=== PATIENT | female | born 1960 | race Caucasian/White ===

== ENCOUNTER 2021-05-13 08:18 | Inpatient (IN) | payer BC ==
[~2021-05-13] VITALS: Ht 165.1 cm; Wt 70.8 kg
[2021-05-13] MEDS ORDERED: ATOR80TA59 PO (08:41)
[2021-05-13] MEDS ORDERED: FLUO20CA22 PO (08:41)
[2021-05-13] MEDS ORDERED: VANCOMYCIN HCL 1,500 MG in NS 250 ML IV ONE (09:55)
[2021-05-13 09:58] LABS: BASO % 0.5 % (0.0-1.0); EOS # 0.1 10^3/uL (0.0-0.5); HEMATOCRIT 46.1 % (36.0-47.0); HEMOGLOBIN 15.8 g/dl (12.0-15.5); LYMPH # 1.2 10^3/uL (1.5-5.0); MEAN CORPUSCULAR HGB CONC 34.3 g/dl (32.0-36.5); MEAN CORPUSCULAR VOLUME 93.5 fl (80.0-96.0); MONO # 0.4 10^3/uL (0.0-0.8); MONO % 6.5 % (2.0-8.0); NEUTROPHILS # 4.2 10^3/uL (1.5-8.5); PLATELET COUNT, AUTOMATED 206 10^3/uL (150-450); RED BLOOD COUNT 4.93 10^6/uL (4.00-5.40)
[2021-05-13] MEDS ORDERED: VANCOMYCIN HCL 750 MG, VIAL MATE ADAPTER 1 EACH in NS 250 ML IV ONE ×2 (10:00→11:00)
[2021-05-13] MEDS ORDERED: ATOR40TA75 PO (10:11)
[2021-05-13] MEDS ORDERED: HOME MED LIST COMPLETE! XX SCH (10:15)
[2021-05-13 10:19] LABS: C REACTIVE PROTEIN QUANTITATIV < 0.30 MG/DL (0.00-0.30); RHEUMATOID FACTOR QUANT < 10.0 IU/ML (<15.0)
[2021-05-13] MEDS ORDERED: KETOROLAC 30 MG/ML 1ML VIAL IV ONE (10:25)
[2021-05-13] MEDS ORDERED: ACETAMINOPHEN 500 MG TAB PO ONE (10:25)
[2021-05-13 10:28] LABS: ERYTHROCYTE SEDIMENTATION RATE 2 mm/hr (0-30)
[2021-05-13 11:13] LABS: RSV AMPLIFICATION NEGATIVE (NEGATIVE)
[2021-05-13 11:30] VITALS: O2SAT 97
[2021-05-13] MEDS ORDERED: traMADol 50 MG TAB PO PRN (12:20)
[2021-05-13] MEDS ORDERED: MORPHINE 4 MG/ML 1ML VIAL/SYRINGE (J2270) IV PRN (12:30)
[2021-05-13] MEDS ORDERED: NALOXONE INJ 0.4MG/1ML VIAL (J2310 PER 1MG) IV PRN (12:30)
[2021-05-13] MEDS ORDERED: amLODIPine 5 MG TAB PO PRN (12:30)
[2021-05-13 13:17] LABS: INR 0.97; PROTHROMBIN TIME 13.3 SECONDS (12.7-14.5)
[2021-05-13 13:18] LABS: PARTIAL THROMBOPLASTIN TIME 43.7 SECONDS (25.9-37.0)
[2021-05-13 13:21] LABS: D-DIMER QUANT 560.54 ng/ml (<500)
[2021-05-13 13:35] LABS: ALBUMIN 3.9 GM/DL (3.2-5.2); ALT/SGPT 73 U/L (12-78); BILIRUBIN,DIRECT 0.2 MG/DL (0.0-0.2); BILIRUBIN,TOTAL 0.7 MG/DL (0.2-1.0); C REACTIVE PROTEIN QUANTITATIV < 0.30 MG/DL (0.00-0.30); FERRITIN 274 NG/ML (8-252); LDH LACTATE DEHYDROGENASE 197 U/L (84-246); TOTAL PROTEIN 6.8 GM/DL (6.4-8.2)
[2021-05-13] MEDS ORDERED: ENOXAPARIN 40MG/0.4ML SYRINGE (J1650 PER 10MG) SC ONE (14:00)
[2021-05-13 15:26] VITALS: BP 148/71
[2021-05-13] MEDS: FLUoxetine 20 MG CAP PO SCH (15:31)
[2021-05-13] MEDS: ACETAMINOPHEN 500 MG TAB PO SCH ×3 (15:32→20:19)
[2021-05-13] MEDS: KETOROLAC 30 MG/ML 1ML VIAL IV SCH ×2 (17:48→22:42)
[2021-05-13] MEDS: MUPIROCIN 2% OINT 22 GM TUBE TOP SCH ×2 (17:49→20:19)
[2021-05-13] MEDS: NS 1,000 ML IV SCH (17:49)
[2021-05-13] MEDS ORDERED: predniSONE 50 MG TAB PO ONE (18:00)
[2021-05-13] MEDS ORDERED: hydrOXYzine 50 MG TAB PO ONE (18:00)
[2021-05-13] MEDS: VANCOMYCIN HCL 1,000 MG, VIAL MATE ADAPTER 1 EACH in NS 250 ML IV SCH (20:12)
[2021-05-13] MEDS: hydrOXYzine 25 MG TAB PO SCH (20:18)
[2021-05-13] MEDS: diphenhydrAMINE CREAM 30GM TOP SCH (20:20)
[2021-05-13] MEDS: VANICREAM MOISTURIZING SKIN CREAM 113GM TUBE TOP SCH (20:20)
[2021-05-13] MEDS ORDERED: ATORVASTATIN 20 MG TAB PO SCH (21:00)
[2021-05-13 22:00] VITALS: BP 130/61
[2021-05-14] MEDS: VANCOMYCIN HCL 1,000 MG, VIAL MATE ADAPTER 1 EACH in NS 250 ML IV SCH ×2 (03:21→12:40)
[2021-05-14] MEDS: NS 1,000 ML IV SCH (03:22)
[2021-05-14] MEDS: MUPIROCIN 2% OINT 22 GM TUBE TOP SCH ×2 (05:07→09:00)
[2021-05-14] MEDS: KETOROLAC 30 MG/ML 1ML VIAL IV SCH ×2 (05:07→12:29)
[2021-05-14 05:09] VITALS: BP 120/62
[2021-05-14] MEDS ORDERED: BACITAB PO (07:30)
[2021-05-14] MEDS ORDERED: HYDR-3363 PO (07:30)
[2021-05-14] MEDS ORDERED: MUPI2OI TOP (07:30)
[2021-05-14] MEDS ORDERED: LEVO500T4 PO (07:30)
[2021-05-14 08:21] LABS: BASO % 0.1 % (0.0-1.0); HEMATOCRIT 40.5 % (36.0-47.0); HEMOGLOBIN 13.7 g/dl (12.0-15.5); LYMPH # 0.8 10^3/uL (1.5-5.0); MEAN CORPUSCULAR HEMOGLOBIN 31.8 pg (27.0-33.0); MEAN CORPUSCULAR HGB CONC 33.8 g/dl (32.0-36.5); MONO # 0.3 10^3/uL (0.0-0.8); MONO % 2.6 % (2.0-8.0); NEUTROPHILS # 11.4 10^3/uL (1.5-8.5); NEUTROPHILS % 90.8 % (36.0-66.0); PLATELET COUNT, AUTOMATED 199 10^3/uL (150-450); RED BLOOD COUNT 4.31 10^6/uL (4.00-5.40); WHITE BLOOD COUNT 12.6 10^3/uL (4.0-10.0)
[2021-05-14 08:49] LABS: BLOOD UREA NITROGEN 22 MG/DL (7-18); CALCIUM LEVEL 8.1 MG/DL (8.8-10.2); CARBON DIOXIDE LEVEL 24 MEQ/L (21-32); CHLORIDE LEVEL 111 MEQ/L (98-107); CREATININE FOR GFR 0.65 MG/DL (0.55-1.30); GLOMERULAR FILTRATION RATE > 60.0 (>45); GLUCOSE, FASTING 109 MG/DL (70-100); SODIUM LEVEL 141 MEQ/L (136-145)
[2021-05-14 08:50] LABS: ERYTHROCYTE SEDIMENTATION RATE 3 mm/hr (0-30)
[2021-05-14] MEDS: diphenhydrAMINE CREAM 30GM TOP SCH (09:00)
[2021-05-14] MEDS ORDERED: predniSONE 10 MG TAB PO SCH (09:00)
[2021-05-14] MEDS ORDERED: ENOXAPARIN 40MG/0.4ML SYRINGE (J1650 PER 10MG) SC SCH (09:00)
[2021-05-14] MEDS: FLUoxetine 20 MG CAP PO SCH (09:00)
[2021-05-14] MEDS: hydrOXYzine 25 MG TAB PO SCH ×2 (09:35→15:51)
[2021-05-14] MEDS: ACETAMINOPHEN 500 MG TAB PO SCH ×2 (09:35→15:51)
[2021-05-14] MEDS: VANICREAM MOISTURIZING SKIN CREAM 113GM TUBE TOP SCH (09:38)
[2021-05-14] MEDS ORDERED: DIPHCR TOP (11:52)
[2021-05-14] MEDS ORDERED: DOXY-350 PO (11:52)
[2021-05-14 13:30] LABS: HEMOGLOBIN A1c 5.7 %
[2021-05-17 12:10] LABS: ANA (HEP2) Positive (.); ANTI DS-DNA AB Negative (Negative); SSA SJOGRENS A 0.2 AI (0.0-0.9); SSB SJOGRENS B <0.2 AI (0.0-0.9)
== END 2021-05-14 16:00 | disposition home or self-care (01) | DRG 383 ==
LOC: M ED 08:18 → M ED INP 12:07 → ENRESERV 13:11 → M 4MAIN 15:15
PROVIDERS: ADMIT General Practice; ATTEND General Practice
DX: L03.115 Cellulitis of right lower limb (principal); L03.116 Cellulitis of left lower limb; F41.9 Anxiety disorder, unspecified; F32.9 Major depressive disorder, single episode, unspecified; E78.00 Pure hypercholesterolemia, unspecified; G43.909 Migraine, unspecified, not intractable, without status migrainosus; E55.9 Vitamin D deficiency, unspecified; U07.1 COVID-19; Z88.1 Allergy status to other antibiotic agents; Z88.2 Allergy status to sulfonamides; Z88.8 Allergy status to other drugs, medicaments and biological substances; F17.210 Nicotine dependence, cigarettes, uncomplicated; B95.62 Methicillin resistant Staphylococcus aureus infection as the cause of diseases classified elsewhere

== ENCOUNTER → 2021-05-14 | Outpatient (CLI) | payer BC ==
[~2021-05-14] MED LIST: ATOR40TA75 PO; ATOR80TA59 PO; BACITAB PO; DALBAVANCIN 1,500 MG in D5W 250 ML IV ONE; DIPHCR TOP; DOXY-350 PO; FLUO20CA22 PO; HYDR-3363 PO; LEVO500T3 PO; MUPI2OI TOP
== END ==
LOC: EEVIPCON 16:46 → M OPCLI4 16:46
PROVIDERS: ATTEND General Practice
DX: L03.115 Cellulitis of right lower limb (principal); L03.116 Cellulitis of left lower limb
CPT/HCPCS: 96374; J0875

== ENCOUNTER → 2021-05-24 | Outpatient (REF) | payer BC ==
[~2021-05-24] MED LIST changes: -DALBAVANCIN 1,500 MG in D5W 250 ML IV ONE
== END ==
LOC: M LAB REF 15:58
PROVIDERS: ATTEND Surgery
DX: I77.6 Arteritis, unspecified (principal)

== ENCOUNTER → 2021-05-31 | Outpatient (CLI) | payer BC ==
--- NOTE | 2021-05-31 17:28 | REP ---
INDICATION: EFFUSION, UNSPECIFIED JOINT COMPARISON: None. TECHNIQUE: AP, lateral, bilateral oblique views right and left wrist. FINDINGS: Generalized biggs carpal symmetric age-related degenerative changes noted bilaterally. There is mildly increased sclerosis along the radial surface with decreased radiocarpal joint space bilaterally. There is no evidence for acute fracture or dislocation. IMPRESSION: Bilateral symmetric generalized age-related changes. <Electronically signed by Fernie Enrique > 05/31/21 [id number]
--- NOTE | 2021-05-31 17:30 | REP ---
INDICATION: EFFUSION, UNSPECIFIED JOINT COMPARISON: None. TECHNIQUE: AP, lateral, bilateral oblique views right and left hand. 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 Remainder of the interphalangeal joints demonstrate moderate degenerative change. Metacarpophalangeal joints are relatively age-appropriate. No periarticular erosive changes or loose bodies identified. No evidence for acute fracture or dislocation. 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 <Electronically signed by Fernie Enrique > 05/31/21 [id number]
== END ==
LOC: M RAD 16:30
PROVIDERS: ATTEND Internal Medicine
DX: M25.40 Effusion, unspecified joint (principal); M19.041 Primary osteoarthritis, right hand; M19.042 Primary osteoarthritis, left hand; M19.031 Primary osteoarthritis, right wrist; M19.032 Primary osteoarthritis, left wrist

== ENCOUNTER → 2021-05-31 | Outpatient (REF) | payer BC ==
[~2021-05-31] MED LIST changes: -LEVO500T3 PO; +LEVO500T4 PO
[2021-05-31 17:54] LABS: APPEARANCE, URINE CLEAR (CLEAR); BACTERIA, URINE AUTO NEGATIVE (NEGATIVE); BILIRUBIN, URINE AUTO NEGATIVE (NEGATIVE); BLOOD, URINE BLOOD NEGATIVE (NEGATIVE); COLOR, URINE YELLOW (YELLOW); GLUCOSE, URINE (UA) AUTO NEGATIVE (NEGATIVE); KETONE, URINE AUTO TRACE mg/dL (NEGATIVE); LEUKOCYTE ESTERASE, URINE AUTO NEGATIVE (NEGATIVE); MUCUS, URINE SMALL (NEGATIVE); NITRITE, URINE AUTO NEGATIVE (NEGATIVE); PROTEIN, URINE AUTO NEGATIVE (NEGATIVE); RBC, URINE AUTO 0 /HPF (0-3); SQUAMOUS EPITHELIAL CELL UR AU 1 /HPF (0-6); WBC, URINE AUTO 0 /HPF (0-3)
[2021-05-31 17:55] LABS: BASO % 0.7 % (0.0-1.0); EOS # 0.2 10^3/uL (0.0-0.5); EOS % 3.8 % (0.0-3.0); HEMATOCRIT 44.9 % (36.0-47.0); HEMOGLOBIN 15.3 g/dl (12.0-15.5); LYMPH # 1.5 10^3/uL (1.5-5.0); LYMPH % 25.9 % (24.0-44.0); MEAN CORPUSCULAR HEMOGLOBIN 31.4 pg (27.0-33.0); MEAN CORPUSCULAR HGB CONC 34.1 g/dl (32.0-36.5); MEAN CORPUSCULAR VOLUME 92.2 fl (80.0-96.0); MONO # 0.5 10^3/uL (0.0-0.8); NEUTROPHILS # 3.6 10^3/uL (1.5-8.5); NEUTROPHILS % 61.4 % (36.0-66.0); PLATELET COUNT, AUTOMATED 231 10^3/uL (150-450); RED BLOOD COUNT 4.87 10^6/uL (4.00-5.40); WHITE BLOOD COUNT 5.9 10^3/uL (4.0-10.0)
[2021-05-31 19:22] LABS: ERYTHROCYTE SEDIMENTATION RATE 4 mm/hr (0-30)
[2021-05-31 21:18] LABS: C REACTIVE PROTEIN QUANTITATIV < 0.30 MG/DL (0.00-0.30); COMPLEMENT C3 104 MG/DL (90-180); COMPLEMENT C4 14 MG/DL (10-40)
[2021-05-31 21:28] LABS: TOTAL PROTEIN,RANDOM URINE 12.6 MG/DL (0.0-12.0)
[2021-05-31 21:29] LABS: HEPATITIS B SURFACE ANTIBODY NEGATIVE (POSITIVE)
[2021-05-31 21:40] LABS: HEPATITIS B SURFACE ANTIGEN NEGATIVE (NEGATIVE)
[2021-06-01 11:01] LABS: HEPATITIS C VIRUS ABY INDEX 0.1 INDEX (<0.8)
[2021-06-04 12:07] LABS: ANCA-ATYPICAL <1:20 titer (Neg:<1:20); COMPLEMENT TOTAL (CH50) 53 U/mL (>41); CYTOPLASMIC NEUTROP AB ANCA-C <1:20 titer (Neg:<1:20); HEPATITIS B CORE ANTIBODY IGG Negative (Negative); PERINUCLEAR AB ANCA-P <1:20 titer (Neg:<1:20)
== END ==
LOC: M SFHCRHEU 15:46
PROVIDERS: ATTEND Internal Medicine
DX: R76.8 Other specified abnormal immunological findings in serum (principal)

== ENCOUNTER → 2022-01-17 | Outpatient (CLI) | payer BC ==
[~2022-01-17] MED LIST changes: +LEVO1TAB39 PO; -LEVO500T4 PO
[2022-01-17 18:00] LABS: HEMATOCRIT 48.7 % (36.0-47.0); HEMOGLOBIN 16.8 g/dl (12.0-15.5); MEAN CORPUSCULAR HEMOGLOBIN 31.6 pg (27.0-33.0); MEAN CORPUSCULAR HGB CONC 34.5 g/dl (32.0-36.5); MEAN CORPUSCULAR VOLUME 91.5 fl (80.0-96.0); PLATELET COUNT, AUTOMATED 215 10^3/uL (150-450); RED BLOOD COUNT 5.32 10^6/uL (4.00-5.40); WHITE BLOOD COUNT 7.6 10^3/uL (4.0-10.0)
[2022-01-17 18:24] LABS: ALBUMIN 3.5 GM/DL (3.2-5.2); ALT/SGPT 43 U/L (12-78); BILIRUBIN,TOTAL 0.7 MG/DL (0.2-1.0); BLOOD UREA NITROGEN 16 MG/DL (7-18); CALCIUM LEVEL 8.9 MG/DL (8.8-10.2); CARBON DIOXIDE LEVEL 24 MEQ/L (21-32); CHLORIDE LEVEL 109 MEQ/L (98-107); COMPLEMENT C3 111 MG/DL (90-180); COMPLEMENT C4 28 MG/DL (10-40); CREATININE FOR GFR 0.86 MG/DL (0.55-1.30); GLOMERULAR FILTRATION RATE > 60.0 (>45); GLUCOSE, FASTING 152 MG/DL (70-100); POTASSIUM SERUM 3.4 MEQ/L (3.5-5.1); SODIUM LEVEL 141 MEQ/L (136-145); TOTAL PROTEIN 6.2 GM/DL (6.4-8.2); URIC ACID 4.1 MG/DL (2.6-6.0)
[2022-01-17 19:22] LABS: ERYTHROCYTE SEDIMENTATION RATE 4 mm/hr (0-30)
== END ==
LOC: M LAB 17:04
PROVIDERS: ATTEND Nurse Practitioner Family
DX: R21 Rash and other nonspecific skin eruption (principal); L85.8 Other specified epidermal thickening

== ENCOUNTER → 2022-02-10 | Outpatient (CLI) | payer BC | LOC: M LAB 10:55 | PROVIDERS: ATTEND Nurse Practitioner Family | DX: L29.9 Pruritus, unspecified (principal) ==

== ENCOUNTER → 2022-03-31 | Outpatient (REF) | payer BC ==
[2022-03-31 16:36] LABS: APPEARANCE, URINE MANUAL CLEAR (CLEAR); COLOR, URINE MANUAL YELLOW (YELLOW)
[2022-03-31 16:37] LABS: BILIRUBIN, URINE MANUAL NEGATIVE (NEGATIVE); BLOOD URINE MANUAL NEGATIVE (NEGATIVE); GLUCOSE, URINE (UA) MANUAL NEGATIVE (NEGATIVE); KETONE, URINE MANUAL NEGATIVE (NEGATIVE); LEUKOCYTE ESTERASE, URINE MAN NEGATIVE (NEGATIVE); NITRITE, URINE MANUAL NEGATIVE (NEGATIVE); PROTEIN, URINE MANUAL NEGATIVE (NEGATIVE); SPECIFIC GRAVITY,URINE MANUAL 1.025 (1.002-1.035); UROBILINOGEN, URINE MANUAL NORMAL (NORMAL)
[2022-03-31 17:19] LABS: TOTAL PROTEIN,RANDOM URINE < 5.0 MG/DL (0.0-12.0)
[2022-03-31 17:21] LABS: COMPLEMENT C3 130 MG/DL (90-180); COMPLEMENT C4 26 MG/DL (10-40)
[2022-04-05 10:48] LABS: PTT LUPUS TYPE ANTICOAG SCREEN 1.2 (0-1.2)
[2022-04-05 10:55] LABS: DRVV CONFIRM 34.3 SEC; LUPUS CONFIRM RATIO 0.9
[2022-04-05 11:00] LABS: NORMALIZED RATIO 1.33 (0.00-1.20)
[2022-04-07 19:06] LABS: HEXAGONAL PHASE PHOSPHOLIPID 21 sec (0-11)
== END ==
LOC: M SFHCRHEU 13:16
PROVIDERS: ATTEND Internal Medicine
DX: R76.8 Other specified abnormal immunological findings in serum (principal)

== ENCOUNTER → 2022-07-08 | Outpatient (CLI) | payer BC ==
[~2022-07-08] MED LIST changes: -DOXY-350 PO; +DOXY-444 PO
== END ==
LOC: M RAD 06:56
PROVIDERS: ATTEND Nurse Practitioner Family
DX: M54.50 Low back pain, unspecified (principal); N28.1 Cyst of kidney, acquired; M47.817 Spondylosis without myelopathy or radiculopathy, lumbosacral region; I70.90 Unspecified atherosclerosis

== ENCOUNTER 2022-09-22 08:01 | Emergency (ER) | payer BC ==
[~2022-09-22] VITALS: Ht 165.1 cm; Wt 74.7 kg
[2022-09-22] MEDS ORDERED: NS 1,000 ML IV ONE (08:25)
[2022-09-22] MEDS ORDERED: ONDANSETRON 4MG 2ML VIAL IV ONE (08:25)
[2022-09-22] MEDS ORDERED: KETOROLAC 30 MG/ML 1ML VIAL IV ONE (08:25)
[2022-09-22 09:18] LABS: BASO % 0.4 % (0.0-1.0); EOS # 0.1 10^3/uL (0.0-0.5); EOS % 1.5 % (0.0-3.0); HEMATOCRIT 48.1 % (36.0-47.0); HEMOGLOBIN 16.5 g/dl (12.0-15.5); LYMPH # 1.1 10^3/uL (1.5-5.0); LYMPH % 13.5 % (24.0-44.0); MEAN CORPUSCULAR HGB CONC 34.3 g/dl (32.0-36.5); MEAN CORPUSCULAR VOLUME 93.2 fl (80.0-96.0); MONO # 0.4 10^3/uL (0.0-0.8); NEUTROPHILS # 6.2 10^3/uL (1.5-8.5); NEUTROPHILS % 79.3 % (36.0-66.0); PLATELET COUNT, AUTOMATED 193 10^3/uL (150-450); RED BLOOD COUNT 5.16 10^6/uL (4.00-5.40); WHITE BLOOD COUNT 7.8 10^3/uL (4.0-10.0)
[2022-09-22 09:41] LABS: BLOOD UREA NITROGEN 25 MG/DL (9-23); CALCIUM LEVEL 9.3 MG/DL (8.3-10.6); CARBON DIOXIDE LEVEL 26 MMOL/L (20-31); CHLORIDE LEVEL 108 MMOL/L (98-107); CREATININE FOR GFR 0.97 MG/DL (0.55-1.30); GLOMERULAR FILTRATION RATE > 60.0 (>45); GLUCOSE, FASTING 127 MG/DL (74-106); POTASSIUM SERUM 4.3 MMOL/L (3.5-5.1); SODIUM LEVEL 141 MMOL/L (136-145)
[2022-09-22] MEDS ORDERED: FLOM0.4C39 PO (10:52)
[2022-09-22] MEDS ORDERED: ONDA4TAB6 PO (10:52)
[2022-09-22] MEDS ORDERED: KETO10TAB PO (10:52)
[2022-09-22 11:02] VITALS: BP 143/85
== END 2022-09-22 11:04 | disposition home or self-care (01) ==
LOC: M ED 08:01
DX: N20.1 Calculus of ureter (principal); K21.9 Gastro-esophageal reflux disease without esophagitis; E78.5 Hyperlipidemia, unspecified; F41.9 Anxiety disorder, unspecified; F17.200 Nicotine dependence, unspecified, uncomplicated; Z79.899 Other long term (current) drug therapy; Z88.1 Allergy status to other antibiotic agents; Z88.2 Allergy status to sulfonamides; Z91.018 Allergy to other foods
CPT/HCPCS: 74176; 80048; 81001; 85025; 87086; 96374; 96375; 99284; J1885; J2405

== ENCOUNTER → 2022-10-06 | Outpatient (REF) | payer BC ==
[~2022-10-06] MED LIST changes: +FLOM0.4C39 PO; +KETO10TAB PO; +ONDA4TAB6 PO
== END ==
LOC: M SMT 17:00
PROVIDERS: ATTEND Urology
DX: N20.0 Calculus of kidney (principal)

== ENCOUNTER → 2022-11-02 | Outpatient (REF) | payer BC ==
[2022-11-02 14:54] LABS: ALBUMIN 2.9 G/DL (3.2-5.2); ALKALINE PHOSPHATASE 116 U/L (46-116); ALT/SGPT 65 U/L (7.0-40); AST/SGOT 48 U/L (<34); BILIRUBIN,TOTAL 0.6 MG/DL (0.3-1.2); BLOOD UREA NITROGEN 12 MG/DL (9-23); CALCIUM LEVEL 8.7 MG/DL (8.3-10.6); CARBON DIOXIDE LEVEL 24 MMOL/L (20-31); CHLORIDE LEVEL 106 MMOL/L (98-107); CHOLESTEROL LEVEL 147 MG/DL (<200); CHOLESTEROL RISK RATIO 4.52 (<5); CREATININE FOR GFR 0.64 MG/DL (0.55-1.30); GLOMERULAR FILTRATION RATE > 60.0 (>45); GLUCOSE, FASTING 113 MG/DL (74-106); HDL CHOLESTEROL 32.5 MG/DL (>40); LDL CHOLESTEROL 88.3 MG/DL (<100); NON-HDL-C 114.5 MG/DL; SODIUM LEVEL 138 MMOL/L (136-145); TOTAL PROTEIN 6.1 G/DL (5.7-8.2); TRIGLYCERIDES LEVEL 131 MG/DL (<150)
== END ==
LOC: M SFHCADAM 09:49
PROVIDERS: ATTEND Physician Assistant Medical
DX: E78.2 Mixed hyperlipidemia (principal); K21.9 Gastro-esophageal reflux disease without esophagitis; F41.1 Generalized anxiety disorder

== ENCOUNTER → 2022-11-03 | Outpatient (REF) | payer BC ==
[2022-11-03 15:36] LABS: BASO % 0.2 % (0.0-1.0); EOS # 0.1 10^3/uL (0.0-0.5); HEMATOCRIT 39.1 % (36.0-47.0); LYMPH # 1.5 10^3/uL (1.5-5.0); LYMPH % 18.1 % (24.0-44.0); MEAN CORPUSCULAR HEMOGLOBIN 31.5 pg (27.0-33.0); MEAN CORPUSCULAR HGB CONC 33.2 g/dl (32.0-36.5); MEAN CORPUSCULAR VOLUME 94.7 fl (80.0-96.0); MONO # 0.7 10^3/uL (0.0-0.8); NEUTROPHILS # 6.1 10^3/uL (1.5-8.5); NEUTROPHILS % 72.5 % (36.0-66.0); PLATELET COUNT, AUTOMATED 361 10^3/uL (150-450); RED BLOOD COUNT 4.13 10^6/uL (4.00-5.40); WHITE BLOOD COUNT 8.4 10^3/uL (4.0-10.0)
== END ==
LOC: M LABDRWAD 15:02
PROVIDERS: ATTEND Physician Assistant Medical
DX: F41.1 Generalized anxiety disorder (principal); E78.2 Mixed hyperlipidemia; K21.9 Gastro-esophageal reflux disease without esophagitis

== ENCOUNTER → 2023-01-24 | Outpatient (CLI) | payer BC | LOC: M ADAMS 10:36 | PROVIDERS: ATTEND Physician Assistant Medical | DX: R10.84 Generalized abdominal pain (principal) ==

== ENCOUNTER → 2023-03-20 | Outpatient (REF) | payer BC | LOC: M SFHCWAGY 10:24 | PROVIDERS: ATTEND Nurse Practitioner Family | DX: Z12.4 Encounter for screening for malignant neoplasm of cervix (principal) | CPT/HCPCS: 87624; G0123 ==

== ENCOUNTER 2024-01-19 08:20 | Emergency (ER) | payer BC, MEDICARE ==
[~2024-01-19] VITALS: Ht 165.1 cm; Wt 70.0 kg
[~2024-01-19 08:20] MED LIST changes: +DOXY-440 PO; -DOXY-444 PO; +FLUO-365 PO; -FLUO20CA22 PO; +ONDA-282 PO; -ONDA4TAB6 PO
[2024-01-19 09:15] LABS: BASO % 0.3 % (0.0-1.0); EOS # 0.1 10^3/uL (0.0-0.5); EOS % 0.5 % (0.0-3.0); HEMATOCRIT 44.6 % (36.0-47.0); HEMOGLOBIN 14.9 g/dl (12.0-15.5); LYMPH # 1.3 10^3/uL (1.5-5.0); LYMPH % 13.5 % (24.0-44.0); MEAN CORPUSCULAR HEMOGLOBIN 31.3 pg (27.0-33.0); MEAN CORPUSCULAR HGB CONC 33.4 g/dl (32.0-36.5); MEAN CORPUSCULAR VOLUME 93.7 fl (80.0-96.0); MONO # 0.5 10^3/uL (0.0-0.8); MONO % 5.5 % (2.0-8.0); NEUTROPHILS # 7.6 10^3/uL (1.5-8.5); PLATELET COUNT, AUTOMATED 223 10^3/uL (150-450); RED BLOOD COUNT 4.76 10^6/uL (4.00-5.40); WHITE BLOOD COUNT 9.5 10^3/uL (4.0-10.0)
[2024-01-19 09:31] LABS: LIPASE 45 U/L (12-53)
[2024-01-19 09:33] LABS: ALBUMIN 3.6 G/DL (3.2-5.2); ALKALINE PHOSPHATASE 118 U/L (46-116); ALT/SGPT 27 U/L (7.0-40); AST/SGOT 16 U/L (<34); BILIRUBIN,DIRECT 0.3 MG/DL (<0.4); BILIRUBIN,TOTAL 0.9 MG/DL (0.3-1.2); BLOOD UREA NITROGEN 14 MG/DL (9-23); CALCIUM LEVEL 9.1 MG/DL (8.3-10.6); CARBON DIOXIDE LEVEL 26 MMOL/L (20-31); CHLORIDE LEVEL 109 MMOL/L (98-107); CREATININE FOR GFR 0.65 MG/DL (0.55-1.30); GLOMERULAR FILTRATION RATE > 60.0 (>45); GLUCOSE, FASTING 113 MG/DL (74-106); POTASSIUM SERUM 4.1 MMOL/L (3.5-5.1); SODIUM LEVEL 140 MMOL/L (136-145); TOTAL PROTEIN 6.6 G/DL (5.7-8.2)
[2024-01-19] MEDS ORDERED: ISOVUE-370 76% 100ML VIAL As Ordered ONE (11:31)
[2024-01-19] MEDS: NS 1,000 ML IV ONE (11:44)
[2024-01-19 12:29] VITALS: TEMP 96.9
[2024-01-19] MEDS ORDERED: AMOX875T2 PO (13:02)
[2024-01-19] MEDS: PIPERACILLIN/TAZOBACTAM SOD 3.375 GM in D5W MINI-BAG PLUS 50 ML IV ONE (13:15)
[2024-01-19] MEDS: KETOROLAC 30 MG/ML 1ML VIAL IV ONE (13:15)
[2024-01-19 14:17] VITALS: BP 154/75; O2SAT 99
== END 2024-01-19 14:19 | disposition home or self-care (01) ==
LOC: M ED 08:20
DX: K57.92 Diverticulitis of intestine, part unspecified, without perforation or abscess without bleeding (principal); K21.9 Gastro-esophageal reflux disease without esophagitis; G43.909 Migraine, unspecified, not intractable, without status migrainosus; F41.9 Anxiety disorder, unspecified; F32.A Depression, unspecified; F17.200 Nicotine dependence, unspecified, uncomplicated; Z88.1 Allergy status to other antibiotic agents; Z88.8 Allergy status to other drugs, medicaments and biological substances; Z91.018 Allergy to other foods
CPT/HCPCS: 74177; 80048; 80076; 81001; 83690; 85025; 87088; 87186; 96365; 99284; J1885; J2543; Q9967

== ENCOUNTER → 2024-01-24 | Outpatient (REF) | payer MEDICARE ==
[~2024-01-24] MED LIST changes: +AMOX875T2 PO
== END ==
LOC: M SFHCADAM 10:46
PROVIDERS: ATTEND Physician Assistant Medical
DX: K57.92 Diverticulitis of intestine, part unspecified, without perforation or abscess without bleeding (principal); R11.0 Nausea; R41.89 Other symptoms and signs involving cognitive functions and awareness

== ENCOUNTER → 2024-01-24 | Outpatient (CLI) | payer MEDICARE ==
[2024-01-24 12:20] LABS: BASO % 0.2 % (0.0-1.0); EOS # 0.3 10^3/uL (0.0-0.5); EOS % 4.6 % (0.0-3.0); HEMOGLOBIN 15.2 g/dl (12.0-15.5); LYMPH # 1.8 10^3/uL (1.5-5.0); LYMPH % 29.9 % (24.0-44.0); MEAN CORPUSCULAR HEMOGLOBIN 31.5 pg (27.0-33.0); MEAN CORPUSCULAR HGB CONC 35.3 g/dl (32.0-36.5); MEAN CORPUSCULAR VOLUME 89.2 fl (80.0-96.0); MONO # 0.5 10^3/uL (0.0-0.8); MONO % 8.3 % (2.0-8.0); NEUTROPHILS # 3.4 10^3/uL (1.5-8.5); NEUTROPHILS % 56.7 % (36.0-66.0); PLATELET COUNT, AUTOMATED 279 10^3/uL (150-450); RED BLOOD COUNT 4.82 10^6/uL (4.00-5.40); WHITE BLOOD COUNT 6.1 10^3/uL (4.0-10.0)
[2024-01-24 12:45] LABS: VITAMIN B12 LEVEL 689 PG/ML (211-911)
== END ==
LOC: M LAB 11:46
PROVIDERS: ATTEND Physician Assistant Medical
DX: K57.92 Diverticulitis of intestine, part unspecified, without perforation or abscess without bleeding (principal); R11.0 Nausea; R41.89 Other symptoms and signs involving cognitive functions and awareness; Z11.3 Encounter for screening for infections with a predominantly sexual mode of transmission; Z72.89 Other problems related to lifestyle

== ENCOUNTER → 2024-02-13 | Outpatient (CLI) | payer MEDICARE | LOC: M PLAIMG 07:45 | PROVIDERS: ATTEND Physician Assistant Medical | DX: R41.89 Other symptoms and signs involving cognitive functions and awareness (principal) ==

== ENCOUNTER → 2024-02-22 | Outpatient (CLI) | payer MEDICARE | LOC: M RAD 06:51 | PROVIDERS: ATTEND Physician Assistant Medical | DX: E72.20 Disorder of urea cycle metabolism, unspecified (principal); N28.1 Cyst of kidney, acquired ==

== ENCOUNTER → 2024-03-14 | Outpatient (CLI) | payer MEDICARE ==
[~2024-03-14] MED LIST changes: +GASTROGRAFIN SOLUTION 30ML As Ordered ONE; +ISOVUE-370 76% 100ML VIAL As Ordered ONE
== END ==
LOC: M RAD 08:57
PROVIDERS: ATTEND Physician Assistant Medical
DX: R10.84 Generalized abdominal pain (principal); K57.30 Diverticulosis of large intestine without perforation or abscess without bleeding; N28.1 Cyst of kidney, acquired; D27.1 Benign neoplasm of left ovary; M43.17 Spondylolisthesis, lumbosacral region
CPT/HCPCS: 74177; Q9963; Q9967

== ENCOUNTER → 2024-03-20 | Outpatient (CLI) | payer MEDICARE ==
[~2024-03-20] MED LIST changes: -GASTROGRAFIN SOLUTION 30ML As Ordered ONE; -ISOVUE-370 76% 100ML VIAL As Ordered ONE
== END ==
LOC: M WHC 10:21
PROVIDERS: ATTEND Nurse Practitioner Family
DX: N83.202 Unspecified ovarian cyst, left side (principal)

== ENCOUNTER → 2024-03-20 | Outpatient (CLI) | payer MEDICARE ==
[2024-03-20 13:55] LABS: LDH LACTATE DEHYDROGENASE 189 U/L (120-246)
[2024-03-20 13:57] LABS: CARCINOEMBRYONIC ANTIGEN < 2.0 NG/ML (<2.5)
[2024-03-20 14:12] LABS: CA19-9 TUMOR MARKER,CARBOHYDRA 12.2 U/ML (<35.0)
== END ==
LOC: M PLALAB 10:25
PROVIDERS: ATTEND Nurse Practitioner Family
DX: N83.202 Unspecified ovarian cyst, left side (principal); D39.12 Neoplasm of uncertain behavior of left ovary

== ENCOUNTER 2025-01-31 06:54 | Day surgery (SDC) | payer MEDICARE ==
[~2025-01-31] VITALS: Ht 165.1 cm; Wt 70.3 kg
[~2025-01-31 06:54] MED LIST changes: +DOXE10CA PO; +ECOT81TA5 PO; -FLOM0.4C39 PO; +OMEG10002 PO; +PEPC1TAB5 PO; +TAMS-18 PO; +TRIA1CR80
[2025-01-31] MEDS ORDERED: LR 1,000 ML IV SCH ×2 (07:10→10:45)
[2025-01-31] MEDS ORDERED: FAMOTIDINE 20 MG/2 ML VIAL IVP ONE (07:10)
[2025-01-31 07:47] LABS: PLATELET COUNT, AUTOMATED 201 10^3/uL (150-450)
[2025-01-31] MEDS: SCOPOLAMINE 1MG TRANSDERMAL PATCH TOP ONE (08:49)
[2025-01-31] MEDS ORDERED: MIDAZOLAM INJ 2 MG/2 ML VIAL As Ordered ONE (09:08)
[2025-01-31] MEDS ORDERED: PHENYLephrine 500MCG 5ML (100MCG/ML) SYRINGE As Ordered ONE (09:35)
[2025-01-31] MEDS ORDERED: SUGAMMADEX SODIUM 200 MG/2 ML VIAL As Ordered ONE (10:37)
[2025-01-31] MEDS ORDERED: HYDROMORPHONE HCL 0.5 MG/0.5 ML SYRINGE IV PRN (10:45)
[2025-01-31] MEDS ORDERED: ONDANSETRON 4MG 2ML VIAL IV PRN (10:45)
[2025-01-31] MEDS ORDERED: OXYC1TAB23 PO (11:18)
[2025-01-31] MEDS ORDERED: IBUP-1022 PO (11:18)
[2025-01-31 12:15] VITALS: BP 144/67; TEMP 97.3; O2SAT 98
== END 2025-01-31 12:35 | disposition home or self-care (01) ==
LOC: M SDC 06:54
PROVIDERS: ATTEND Specialist
DX: D27.1 Benign neoplasm of left ovary (principal); R10.2 Pelvic and perineal pain; G47.33 Obstructive sleep apnea (adult) (pediatric); K57.92 Diverticulitis of intestine, part unspecified, without perforation or abscess without bleeding; K76.0 Fatty (change of) liver, not elsewhere classified; K44.9 Diaphragmatic hernia without obstruction or gangrene; J44.9 Chronic obstructive pulmonary disease, unspecified; F41.9 Anxiety disorder, unspecified; F32.A Depression, unspecified; Z79.899 Other long term (current) drug therapy; Z88.1 Allergy status to other antibiotic agents; Z88.2 Allergy status to sulfonamides; Z91.018 Allergy to other foods; F17.210 Nicotine dependence, cigarettes, uncomplicated
CPT/HCPCS: 36415; 58661; 85027; 86850; 88305; J0665; J2250; J2371; J3010